=== PATIENT | female | born 1970 | race Caucasian/White ===

== ENCOUNTER 2020-01-30 07:19 | Outpatient (CLI) | payer BC, SELFPAY ==
--- NOTE | ~2020-01-30 | MM_ITS ---
EXAMINATION: MM screening [facility] BI w nirali HISTORY: Screening mammogram TECHNIQUE: Craniocaudal and mediolateral oblique 3-D tomosynthesis images were obtained and synthetic 2-D images were generated. CAD analysis was submitted and interpreted. COMPARISON: 01/05/2019, 12/20/2017, 10/26/2016 BREAST PARENCHYMAL COMPOSITION: There are scattered areas of fibroglandular density. FINDINGS: There is no evidence of suspicious mass, calcification, or architectural distortion to sugg est malignancy in either breast. There has been no suspicious interval change. IMPRESSION: 1. No mammographic evidence of malignancy. 2. Recommend routine screening mammography in one year. BI-RADS Category 1: Negative Reviewed, dictated and finalized at location A.
== END 2020-01-30 07:20 | disposition home or self-care (01) ==
LOC: ANHIMG 07:26
DX: Z12.31 Encounter for screening mammogram for malignant neoplasm of breast (principal)
CPT/HCPCS: 77063; 77067

== ENCOUNTER 2021-06-13 10:57 | Emergency (ER) | payer BC, SELFPAY ==
--- NOTE | ~2021-06-13 | CT_ITS ---
EXAMINATION: CTA BRAIN/CAROTID DATE: 06/13/2021 12:28 INDICATION: Dizziness TECHNIQUE: Computed tomographic angiography (CTA) of the head and neck was performed with 100 mL Omni paque-350 intravenous contrast. Multiplanar reconstructions and maximum intensity projection 3D-recon structions of the carotid arteries and of the intracranial arteries were created by the technologist on a separate workstation. Precontrast CT of the head was also obtained. Automated exposure control and iterative reconstruction technique were employed.The dose-length product was 1724.69 mGy-cm. COMPARISON: None. FINDINGS: Carotid arteries: There is no evident atherosclerotic plaque at the normal caliber aortic arch, at the great vessels ar ising from the arch or along the bilateral common carotid arteries, vertebral arteries and cervical p ortions of the bilateral internal carotid arteries with 0% stenosis of the carotid bulbs relative to normal distal artery lumen diameter (NASCET criteria). Left vertebral artery is dominant. Moderate lo wer cervical spondylosis. Cervical soft tissues are unremarkable. Mild emphysema at the apices of the lungs. Head: No acute intracranial hemorrhage, acute infarction or abnormal extra axial fluid collection. Ventricl es are normal and symmetric. No mass/mass effect. The orbits, paranasal sinuses and mastoid air cells are normal. No abnormally enhancing brain lesions. Intracranial arteries There is no hemodynamically significant stenosis in the vertebral, basilar and internal carotid arter ies. Left vertebral artery is dominant. The diminutive intracranial right vertebral artery terminates at the right posterior inferior cerebellar artery with the left vertebral artery providing the exclu sive supply to the to the basilar artery. There are no aneurysms, thrombosis or dissections identifie d. Both A1 and P1 segments are patent. Cerebral arterial arborization appears symmetric. IMPRESSION: 1. No atherosclerotic plaque with 0% stenosis of the left and right carotid bulbs relative to normal distal artery lumen diameter (NASCET criteria). 2. Dominant left vertebral artery which is the sole supply to the basilar artery with a diminutive in tracranial right vertebral artery terminating at the right posterior inferior cerebellar artery. Othe rwise normal cerebral CT angiogram. 3. Normal brain. No acute intracranial process. Reviewed, dictated and finalized at location A. IMPRESSION: 1. No atherosclerotic plaque with 0% stenosis of the left and right carotid bul bs relative to normal distal artery lumen diameter (NASCET criteria). 2. Dominant left vertebral artery which is the sole supply to the basilar arter y with a diminutive intracranial right vertebral artery terminating at the righ t posterior inferior cerebellar artery. Otherwise normal cerebral CT angiogram. 3. Normal brain. No acute intracranial process.
--- NOTE | 2021-06-13 11:11 | ECG_ITS ---
Measurements Intervals [place] Rate: 73 P: 21 [place]: 120 QRS: 72 QRSD: 112 T: 27 QT: 377 QTc: 416 Interpretive Statements SINUS RHYTHM WITH SINUS ARRHYTHMIA DELAYED PRECORDIAL R/S TRANSITION BASELINE ARTIFACT- I, II, III, V1, V3-V6 BORDERLINE ECG Electronically Signed On 06-13-2021 11:23:47 CDT by Prashant Daly D.O.
[2021-06-13 11:15] VITALS: BP 130/92; PULSE 80; RESP 12; TEMP 36.7; O2SAT 98
[2021-06-13 11:31] LABS: Basophils Absolute Auto 0.1 K/mm3 (0.0-0.1); Basophils Percent Auto 0.6 % (0.2-1.2); Eosinophils Absolute Auto 0.2 K/mm3 (0-0.3); Hematocrit 41.9 % (37.0-47.0); Hemoglobin 13.6 g/dL (12.0-15.0); Immature Granulocyte Absolute 0.02 K/mm3 (0.00-0.031); Immature Granulocyte Percent A 0.3 % (0-0.5); Lymphocytes Absolute Auto 1.71 K/mm3 (0.9-3.2); Lymphocytes Percent Auto 21.7 % (18.3-44.2); Mean Corpuscular HGB Conc 32.5 g/dl (32-36); Mean Corpuscular Hemoglobin 32.2 pg (26-34); Mean Corpuscular Volume 99.1 fl (80-100); Mean Platelet Volume 9.6 fl (7.4-10.4); Monocytes Absolute Auto 0.7 K/mm3 (0.1-0.6); Monocytes Percent Auto 8.5 % (2.6-8.5); Neutrophils Absolute Auto 5.3 K/mm3 (1.3-6.7); Neutrophils Percent Auto 66.9 % (45.5-73.1); Platelet Count Result 228 k/mm3 (150-375); Red Blood Count 4.23 M/mm3 (4.2-5.4); Red Cell Distribution Width 13.6 % (11.5-14.5); White Blood Count 7.9 K/mm3 (4.5-10.0)
[2021-06-13 11:42] LABS: Alanine Aminotransferase 13 U/L (4-35); Albumin Level 4.2 g/dL (3.5-5.1); Alkaline Phosphatase 47 U/L (38-126); Anion Gap 10 mmol/L (8-16); Aspartate Amino Transferase 18 U/L (14-36); Bilirubin,Total 0.4 mg/dL (0.2-1.3); Blood Urea Nitrogen 7 mg/dL (7-17); Calcium 10.4 mg/dL (8.4-10.2); Carbon Dioxide 22 mmol/L (22-30); Chloride 109 mmol/L (98-107); Estimated CRCL calculation 76 ml/min; Estimated Glomerular Filt Rate > 60; Glucose 117 mg/dL (65-110); Potassium 3.7 mmol/L (3.4-5.0); Sodium 141 mmol/L (137-145)
[2021-06-13 11:43] LABS: Add Urine Microscopic? YES; Appearance Urine Cloudy (Clear); Bilirubin Urine Negative (Negative); Blood Urine Negative (Negative); Color Urine Yellow (Yellow); Glucose Urine UA Negative (Negative); Ketones Urine Negative (Negative); Leukocyte Esterase Ur Negative LEU/UL (Negative); Mucus Urine Rare /lpf; Nitrate Urine Negative (Negative); Protein Urine Negative (Negative); RBC Urine 0-2 /hpf (0-2); Specific Grav Ur 1.012 (1.001-1.035); Squamous Epithelial Cell Urine Many /hpf (Few); Urobilinogen Urine Negative mg/dL (<2.0); WBC Urine 0-3 /hpf
--- NOTE | 2021-06-13 12:04 | ED.GENADULT ---
HPI - General Adult General Chief complaint: Dizziness Stated complaint: dizziness Time Seen by Provider: 06/13/21 11:20 Source: patient History of Present Illness HPI narrative: Patient is a 50 y/o female complaining of severe dizziness since about 7:00 AM this morning when she woke up. She describes the dizziness as moving around. She has to hold onto things to get around. She states that moving her head seems to aggravate her dizziness. She has no nausea, vomiting, focal weakness or numbness. She has some difficulty with walking due to dizziness. Related Data Allergies Allergy/AdvReac Type Severity Reaction Status Date / Time codeine Allergy Unknown Verified 05/12/14 09:40 hydrocodone Allergy Unknown Vomiting Verified 03/22/19 19:48 oxycodone Allergy Unknown Verified 05/12/14 09:40 tetracycline Allergy Unknown Verified 05/12/14 09:40 Review of Systems Constitutional: Constitutional: Denies chills, Denies fever(s), Denies headache(s) and Denies weakness Eyes: Eyes: Denies blurry vision ENT: Denies headache(s) and Denies neck pain Cardiovascular: Cardiovascular: Denies chest pain and Denies dyspnea Respiratory: Respiratory: Denies cough and Denies dyspnea Gastrointestinal: Gastrointestinal: Denies abdominal pain, Denies diarrhea, Denies nausea and Denies vomiting Genitourinary: Genitourinary: Denies hematuria and Denies dysuria Musculoskeletal: Musculoskeletal: Denies back pain and Denies neck pain Neurologic: Reports dizziness, Denies headache(s) and Denies weakness [facility] Family History Family History Father Family history of elevated blood lipids Colon polyp Mother Family history of elevated blood lipids Family history of type 2 diabetes mellitus Other Hypertension Social History Social History Smoking status: Smoker, status unknown Alcohol intake: current Gender identity (if verbalized by the patient): Female Exam Const: General: no acute distress and well developed Orientation/consciousness: oriented to person, oriented to place, oriented to time and patient oriented x3 HENMT: Head: normocephalic Ears: external ears normal General nose exam: Normal external nose present Eyes: General: appearance normal, both eyes and all related structures Conjunctivae: conjunctivae normal Neck: Neck: normal visual inspection and full ROM Chest: Chest palpation & inspection: normal inspection of the chest and no tenderness Resp: Effort & Inspection: normal respiratory effort Auscultation: clear to auscultation bilaterally Cardio: Rate: regular rate Rhythm: regular rhythm GI: GI Palp: No abdominal tenderness and Yes Soft to palpation Skin: General skin exam: normal color and turgor normal Neuro: General: oriented to person, oriented to place, oriented to time and patient oriented x3 Cranial nerves: Yes CN's II-XII intact bilaterally Cognition (Neuro): normal cognition Speech: normal speech Motor exam (neuro): 5/5 motor strength present throughout Sensory Exam: normal sensation Coordination: [id number] test normal and [id number] test normal Extrem: General: normal to inspection, full ROM and no pedal edema Psych: Appearance: grossly normal Mental Status: mental status grossly normal Affect: normal affect Course Reevaluation(s) Reevaluation #1: Patient ambulated well. She did not complain of any significant dizziness. Date: 06/13/21 Time: 14:10 Vital Signs Vital signs: Vital Signs Temperature 36.7 C 06/13/21 11:15 Pulse Rate 80 06/13/21 11:15 Respiratory Rate 12 06/13/21 11:15 Blood Pressure 130/92 H 06/13/21 11:15 Pulse Oximetry 98 06/13/21 11:15 Temperature 36.7 C 06/13/21 11:15 Pulse Rate 56 L 06/13/21 13:30 Respiratory Rate 19 06/13/21 13:30 Blood Pressure 113/76 06/13/21 13:30 Pulse Oximetry 100 06/13/21 13:30 Medical Decis
[2021-06-13 12:39] VITALS: BP 119/81; PULSE 70; RESP 14; O2SAT 98
[2021-06-13 13:30] VITALS: BP 113/76; PULSE 56; RESP 19; O2SAT 100
[2021-06-13 14:41] VITALS: BP 118/81; PULSE 63; RESP 18; O2SAT 100
== END 2021-06-13 14:42 | disposition home or self-care (01) ==
PROVIDERS: Emergency Medicine; Emergency Provider Emergency Medicine; PCP Internal Medicine
DX: R42 Dizziness and giddiness (principal)
CPT/HCPCS: 36415; 70496; 70498; 80053; 81001; 81025; 85025; 93005; 99284; Q9967

== ENCOUNTER 2021-10-06 07:21 | Outpatient (CLI) | payer BC, SELFPAY ==
--- NOTE | ~2021-10-06 | MM_ITS ---
EXAMINATION: MM screening [facility] BI w nirali HISTORY: Screening mammogram TECHNIQUE: Craniocaudal and mediolateral oblique 3-D tomosynthesis images were obtained and synthetic 2-D images were generated. CAD analysis was submitted and interpreted. COMPARISON: No prior mammogram is available for comparison at this institution. BREAST PARENCHYMAL COMPOSITION: There are scattered areas of fibroglandular density. FINDINGS: Focal small asymmetry is noted in the posterior outer mid to lower right breast; diagnostic right mammogram is recommended, with ultrasound if required. Otherwise there is no evidence of suspicious mass, calcification, or architectural distortion to sugg est malignancy in either breast. There has been no other suspicious interval change. IMPRESSION: 1. Focal small asymmetry in the posterior mid to lower outer right breast 2. Diagnostic right mammogram is recommended, with ultrasound if required BI-RADS Category 0: Incomplete: Needs additional imaging evaluation. Reviewed, dictated and finalized at location A. 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
== END 2021-10-06 07:22 | disposition home or self-care (01) ==
DX: Z12.31 Encounter for screening mammogram for malignant neoplasm of breast (principal); R92.8 Other abnormal and inconclusive findings on diagnostic imaging of breast
CPT/HCPCS: 77063; 77067

== ENCOUNTER 2023-03-28 10:06 | Emergency (ER) | payer BC, SELFPAY ==
[2023-03-28 10:15] VITALS: BP 113/85; PULSE 86; RESP 16; TEMP 36.9; O2SAT 100
--- NOTE | 2023-03-28 10:30 | ED.SKABFB ---
HPI - Skin/Abscess/Foreign Bdy General Chief complaint: Skin/Abscess/Foreign Body Stated complaint: hives Time Seen by Provider: 03/28/23 10:30 Source: patient Mode of arrival: ambulatory Limitations: no limitations History of Present Illness HPI narrative: 52 y/o female presented for c/o intermittent hives for over one year. States the past few days she has had hives on both arms, right leg and started on the right neck and buttocks today. Takes zyrtec and benadryl at times for symptoms. Denies lip, tongue, or throat swelling, shortness of breath or wheezing. Denies changes to soap, detergent, lotion, or any other exposures. 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 Smokes 2ppd. Related Data Home Medications Medication Instructions Recorded Confirmed terbinafine HCl 250 mg tablet 250 mg PO DAILY 03/28/23 03/28/23 Allergies Allergy/AdvReac Type Severity Reaction Status Date / Time codeine Allergy Unknown Other Verified 03/28/23 10:27 hydrocodone Allergy Unknown Vomiting Verified 03/28/23 10:27 oxycodone Allergy Unknown Unknown Verified 03/28/23 10:27 tetracycline Allergy Unknown Unknown Verified 03/28/23 10:27 Review of Systems Review of Systems: CONSTITUTIONAL: Denies body aches, fever, chills, or sweats. EYES: Denies visual changes, redness, or discharge. ENT: Denies rhinorrhea, congestion CARDIOVASCULAR: Denies chest pain, palpitations, or edema. RESPIRATORY: Denies cough or dyspnea. GASTROINTESTINAL: Denies abdominal pain, nausea, vomiting, or diarrhea. SKIN: per HPI MUSCULOSKELETAL: Denies back pain, joint pain, or myalgia. NEUROLOGIC: Denies headache, numbness, tingling, or weakness. [facility] Family History Family History Father Family history of elevated blood lipids Colon polyp Mother Family history of elevated blood lipids Family history of type 2 diabetes mellitus Other Hypertension Social History Social History Smoking status: Smoker, status unknown Alcohol intake: current Gender identity (if verbalized by the patient): Female Comments At time of signature, I have reviewed and agree with nursing past medical, surgical, social and family history unless otherwise noted. Please see nursing chart for further information. There is no relevant family history pertinent to the presenting complaint Exam Narrative: GENERAL: Well-appearing HEAD: Normocephalic, atraumatic. EYES: conjunctivae clear, and EOMI. ENT: Mucous membranes moist. Oropharynx without edema, erythema or lesions. NECK: Supple. No lymphadenopathy CHEST: Clear to auscultation. HEART: Regular rate and rhythm. SKIN: Warm, dry. Scattered erythematous raised lesions to arms, legs, neck, buttocks c/w urticaria. NEURO: Alert and oriented x3. Course Course Emergency Course: Patient is aware of diagnosis, understands and agrees to treatment plan. Anticipatory guidance given. Patient agrees to follow-up as directed and is aware of reasons to seek care at the emergency department. Portions of this record may have been created with voice recognition software Level of Care: Express Care Visit Vital Signs Vital signs: Vital Signs Temperature 98.5 F 03/28/23 10:15 Pulse Rate 86 03/28/23 10:15 Respiratory Rate 16 03/28/23 10:15 Blood Pressure 113/85 03/28/23 10:15 Pulse Oximetry 100 03/28/23 10:15 Temperature 98.5 F 03/28/23 10:15 Pulse Rate 86 03/28/23 10:15 Respiratory Rate 16 03/28/23 10:15 Blood Pressure 113/85 03/28/23 10:15 Pulse Oximetry 100 03/28/23 10:15 Reviewed MDM - Skin/Abscess/Foreign Bdy MDM Narrative Medical decision making narrative: Discussed physical exam findings. Advised supportive measures and signs/symptoms to go to the ER. Pt is appropriate for outpt treatment and f/u. Instructed patient to go to nearest ER immediately for an
== END 2023-03-28 10:44 | disposition home or self-care (01) ==
PROVIDERS: Emergency Provider Nurse Practitioner Family
DX: L50.9 Urticaria, unspecified (principal); F17.200 Nicotine dependence, unspecified, uncomplicated
CPT/HCPCS: 99213; G0463